=== PATIENT | female | born 1975 | race African-American/Black ===

== ENCOUNTER → 2018-04-11 | Outpatient (CLI) | payer OTHER ==
--- NOTE | 2018-04-11 14:37 | PCVCIMAG ---
APPROVED REPORT Study performed: 04/11/2018 13:18:35 Exam: Stress Echocardiogram Indication: Chest pain Stress Nurse: Kaitlyn Reeder RN Status: routine Ht: 5 ft 3 in HR: 75 bpm BP: 174/110 mmHg Rhythm: NSR Medical History Medical History: Hyperlipidemia, HTN Procedure The patient underwent an Exercise Stress Test using the Koffi Protocol. Blood pressure, heart rate, and EKG were monitored. An Echocardiogram was performed by audiology technician in four stages in quad fashion. At peak stress, four selected images were obtained and placed side by side with resting images for comparison. Stress Test Details Stress Test: Exercise stress testing was performed using a Koffi protocol. HR Resting HR: 75 bpmMax Heart Rate (APMHR): 177 bpm Max HR Achieved: 173 bpmTarget HR (85% APMHR): 150 bpm % of APMHR: 97 Recovery HR: 108 bpm HR response to stress: Normal HR response to stress BP Resting BP: 174/110 mmHg Max BP: 224/120 mmHg Recovery BP: 180/108 mmHg BP response to stress: Abnormal hypertensive response to stress. ECG Resting ECG: Sinus Rhythm Stress ECG: Sinus Rhythm Recovery ECG: Sinus Rhythm Clinical Reason for Termination: Maximal effort, Exaggeratede BP Exercise duration: 7 min 44 sec Highest Stage Achieved: Stage 3: 3.4 mph at 14% grade. Exercise capacity: 10.10 METs Overall Exercise Capacity for Age: Average Stress ECG Conclusion ECG: Non-ischemic Clinical: Non-ischemic 1. Subjectively negative for ischemia 2. Elective cardiographic C negative for ischemia 3. Hypertensive blood pressure response Pre-Stress Echo The resting Echocardiogram showed normal left ventricular contractility with an estimated Ejection Fraction of about >55%. Normal wall motion in all segments on baseline images. Clinical No clinical or ECG evidence for ischemia. Conclusion Clinical Response: Non-ischemic Exercise Capacity: Average Stress ECG Response: Non-ischemic Stress Echo Images: Non-ischemic 1. Low risk study Other Information Study Quality: Adequate <Conclusion> 1. Low risk study
== END | disposition home or self-care (01) ==
LOC: PCVCIMAG 13:37
PROVIDERS: ATTEND Internal Medicine
DX: R07.9 Chest pain, unspecified (principal)
CPT/HCPCS: 93325; 93351